=== PATIENT | female | born 2000 | race American Indian/Alaskan Native ===

== ENCOUNTER 2024-04-10 08:04 | Day surgery (SDC) | payer OTHER, BC ==
[~2024-04-10] VITALS: Ht 160 cm; Wt 98.0 kg
[~2024-04-10 08:04] MED LIST: AMOXICILLIN500 MG PO; AYGESTIN5 MG PO; CRUTCH1 EACH; FERROUS SULFAT325 MG PO; FERROUS SULFATE; IBLOOD GLUCOSE TEST STRIP 1 EA TEST VI PRN; IBUPROFEN200 MG PO; IRON325 M1 PO; LACTATED RINGER'S 1,000 ML IV SCH; LIDOCAINE HCL 1% 5 ML SDV INJ ONE; MIDAZOLAM HCL 5 MG/5 ML VIAL IV PRN; NORCO 5-325 TA1 EACH PO; PROBIOTIC1 EAC1 PO; VITAMIN D400 UNIT PO; fentaNYL citrate 100 MCG/2 ML VIAL IV PRN
[2024-04-10 08:36] VITALS: BP 144/71
[2024-04-10] MEDS ORDERED: MIDAZOLAM HCL 5 MG/5 ML VIAL ONE (08:58)
[2024-04-10] MEDS ORDERED: fentaNYL citrate 100 MCG/2 ML VIAL ONE (08:59)
--- NOTE | 2024-04-10 10:19 | NUR ---
04/10/24 1019 Lucero Jansen 1011 PT ARRIVES TO THE PACU WITH EYES OPEN. PT ABLE TO LIFT HEAD FROM PILLOW. RESPIRATIONS EVEN AND UNLABORED. PT ABLE TO TALK WITH RN. PT EASILY FALLS BACK TO SLEEP WITH SNORING NOTED. PT REORIENTED TO PACU AND NO COMPLAINTS OF PAIN OR NAUSEA.
[2024-04-10 10:54] VITALS: BP 141/73
--- NOTE | 2024-04-10 12:39 | OR ---
[facility] [address], [place] [address] Signed DATE OF OPERATION: 04/10/2024 SURGEON: Дмитрий Roberson MD PREOPERATIVE DIAGNOSES: 1. Familial polyposis. 2. History of total proctocolectomy with ileoanal pull-through (J-pouch). POSTOPERATIVE DIAGNOSES: 1. No evidence of pouchitis, questionable small adenomatous polyp at junction of pouch and anal anastomosis. 2. Questionable small duodenal polyps x2; multiple gastric polyps (benign). PROCEDURES: 1. Esophagogastroduodenoscopy with biopsies. 2. Flexible sigmoidoscopy with biopsy of pouch and territory service representative biopsy of possible polyp at the J-pouch junction. ANESTHESIA: Intravenous sedation; fentanyl 150 mcg and Versed 7 mg total. INDICATIONS: This 24-year-old [place]ian [place] girl underwent total proctocolectomy with ileoanal pull-through at age 11 for a familial polyposis. Her mother has had the same operation. She is highly functional. 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 She has no symptoms of pouchitis currently. She is admitted at this time to undergo surveillance upper endoscopy to assess for duodenal polyps given her underlying diagnosis of familial polyposis as well as evaluation of the pouch to assess the junction between pouch and anal canal to assure no retained colonic mucosa has developed polyps and to assess for pouchitis. The patient understands the risk of bleeding, infection, and perforation and wished to proceed. FINDINGS: Upper endoscopy showed multiple gastric polyps, all of which were benign based on known natural history of multiple polyps and familial polyposis. A territory service representative polyp was excised, however. In the duodenum, the ampulla was identified and appeared to be normal. There were two questionable small polyps of the duodenum, both excised with cold morcellation technique. CLOtest was obtained, which was negative. On flexible sigmoidoscopy (J-pouchoscopy), the pouch was free of any inflammation, Electronically Signed By: ДМИТРИЙ ROBERSON MD 04/10/24 1239 PATIENT NAME: KERRI SWAN OPERATIVE REPORT DATE OF : 01 REPORT #: [id number] PHYSICIAN: ДМИТРИЙ ROBERSON MD PCP: ANA CRISTINA STARK MD REPORT IS CONFIDENTIAL AND NOT TO BE RELEASED WITHOUT AUTHORIZATION [facility] [address], [place] [address] Signed though at the junction between the pouch and what would be the anal mucosa there did appear on retroflexed view to be adenomatous appearing polypoid tissue, thus this cannot be certain. It was difficult to even provide biopsy of this, but it was accomplished. If adenoma is identified, immediately we need to resect this. DESCRIPTION OF PROCEDURE: The patient was brought to the endoscopy suite and given topical lidocaine hypopharyngeal anesthesia and placed in lateral decubitus position with left side down. She was given intravenous sedation to the point of slurred speech and nystagmus with full cardiopulmonary monitoring. A bite block was placed. An Olympus video upper endoscope was passed by hypopharynx. Vocal cords were normal. Scope was advanced to the esophagus, which was entirely normal. The scope was passed to the stomach, which was insufflated with air. There were countless gastric polyps as is typical of familial polyposis, none of which would be considered hazardous for malignancy. There were few polyps in the antrum. The pylorus was normal. Scope was passed into the duodenum. The duodenum overall looked to be normal. The ampulla was identified as normal. No sign of adenomatous change there. There appeared to be two small areas that may have represented early duodenal polyps, both were excised. The scope was withdrawn and biopsies then taken of the antrum for both RICHARD and pathologic testing. Additionally, a biopsy was taken of a gastric polyp, though almost certainly the polyps of the stomach would be considered benign with essentially no malignant potential. Retroflexed view was undertaken showing a reasonable flap valve. The scope was withdrawn to the esophagus and throughout its length it was normal and it was not biopsied. Plans were then made for J pouchoscopy. A flexible colonoscope was passed in the rectum after digital examination. The pouch showed no evidence of inflammation, whatsoever and territory service representative biopsy was obtained nevertheless. Retroflexed view was undertaken showing what appeared to be a polypoid lesion at the junction of the pouch and the anal anastomosis. It could not be ascertained whether this represented an adenoma or simply redundant small bowel mucosa. Narrow-band imaging did not further elucidate this. It was somewhat awkward to provide for biopsy, though it was accomplished in the retroflexed view and the territory service representative biopsy was taken. The scope was removed, and the patient taken to the recovery room in good condition. CONCLUDING DIAGNOSES: 1. Possible duodenal polyps x2, uncertain, awaiting pathology. 2. Questionable polyp of the pouch anal junction. If this proves to be adenomatous, additional intervention will have to be undertaken, perhaps with a transanal approach or if necessary a flexible upper endoscope to allow for complete resection. 3. We would otherwise recommend repeat evaluation in three years if the upper endoscopy shows no evidence of adenomatous polyps and perhaps even longer or never if the junctional findings are not adenomatous. Electronically Signed By: ДМИТРИЙ ROBERSON MD 04/10/24 1239 PATIENT NAME: MYNOR SWANBRIA Howard OPERATIVE REPORT DATE OF : 01 REPORT #: [id number] PHYSICIAN: ДМИТРИЙ ROBERSON MD PCP: ANA CRISTINA STARK MD REPORT IS CONFIDENTIAL AND NOT TO BE RELEASED WITHOUT AUTHORIZATION [address] [place] [address] Signed MD WILL Etienne/ADAMS /[id number] cc: Ana Cristina Stark M.D. Copies: ~ Electronically Signed By: ДМИТРИЙ ROBERSON MD 04/10/24 1239 PATIENT NAME: KERRI SWAN OPERATIVE REPORT DATE OF : 01 REPORT #: [id number] PHYSICIAN: ДМИТРИЙ ROBERSON MD PCP: ANA CRISTINA STARK MD REPORT IS CONFIDENTIAL AND NOT TO BE RELEASED WITHOUT AUTHORIZATION
--- NOTE | 2024-04-12 17:27 | PATH ---
[facility] [address] [place], [place] [address] Signed SPECIMEN(S): A DUODENUM POLYP SPECIMEN(S): B STOMACH POLYP SPECIMEN(S): C ILEUM BIOPSY SPECIMEN(S): D JUNCTION ANAL CANAL POUCH SPECIMEN SOURCE: A. DUODENUM POLYP B. STOMACH POLYP C. ILEUM BIOPSY D. JUNCTION ANAL CANAL POUCH CLINICAL HISTORY: Familial polyposis with total proctocolectomy with ileoanal pull-through, #1) possible duodenal polyps, #3) ileal pouch, #4) junction anal canal and pouch? Possible polyp FINAL PATHOLOGIC DIAGNOSIS: A. Duodenum polyp: - Duodenal mucosa with tubular adenoma (one fragment). B. Stomach polyp: - Benign fundic gland polyp (one fragment). C. Ileum biopsy: - Benign small bowel type mucosa, negative for specific diagnostic abnormality. D. Junction anal canal pouch: - Colonic mucosa with tubular adenoma (three fragments). COMMENT: As part of [facility]' Quality Improvement Program, this case was reviewed by another member of our pathology staff. JVR:SHAKIRA:sukh MICROSCOPIC EXAMINATION: Histologic sections of all submitted blocks are examined by light microscopy. These findings, together with the gross examination, support the pathologic diagnosis. GROSS DESCRIPTION: A. The specimen, labeled and designated "David Rios, 1" and designated on the requisition "duodenum polypectomy," is received in formalin and consists of two lewis soft tissue fragments, ranging from PATIENT NAME: KAMILLE SWANTON Howard PATHOLOGY DATE OF : 01 REPORT #: [id number] PHYSICIAN: HARRIS ASCENCIO PCP: SHARYN STARK MD REPORT IS CONFIDENTIAL AND NOT TO BE RELEASED WITHOUT AUTHORIZATION [facility] [address], [place] [address] Signed 0.2-0.3 cm. Entirely submitted in (A1). B. The specimen, labeled and designated "David , 2" and designated on the requisition "stomach polypectomy," is received in formalin and consists of two lewis soft tissue fragments, ranging from 0.1-0.2 cm. Entirely submitted in (B1). C. The specimen, labeled and designated "David , 3" and designated on the requisition "ileum biopsy, ileal pouch biopsy," is received in formalin and consists of three lewis soft tissue fragments, ranging from 0.2-0.3 cm. Entirely submitted in (C1). D. The specimen, labeled and designated "David , 4" and designated on the requisition "junction anal canal pouch," is received in formalin and consists of three lewis soft tissue fragments, ranging from 0.2-0.4 cm. Entirely submitted in (D1). AC (under the direct supervision of a pathologist) The Gross Description was prepared using a voice recognition system. The report was reviewed for accuracy; however, sound-alike word errors, addition and/or deletions may occur. If there is any question about this report, please contact Client Services. PERFORMING LABORATORY: Technical component was performed by [facility], [address] [place] [id number] (CLIA# [id number]). Professional interpretation was performed by [facility], [address] [place] [id number] (CLIA#: [id number]). Diagnostician: Morales Mancia MD Pathologist Electronically Signed 04/12/2024 Copies: ~ PATIENT NAME: KERRI SWAN PATHOLOGY DATE OF : 01 REPORT #: [id number] PHYSICIAN: HARRIS PATHOLOGY PCP: SHARYN STARK MD REPORT IS CONFIDENTIAL AND NOT TO BE RELEASED WITHOUT AUTHORIZATION
== END 2024-04-10 12:04 | disposition home or self-care (01) ==
LOC: DS 08:04 → OPS 08:04
PROVIDERS: ATTEND Surgery
PROC: 0DD68ZX Extraction of Stomach, Via Natural or Artificial Opening Endoscopic, Diagnostic (ICD-10-PCS; 2024-04-10)
PROC: 0DBQ7ZX Excision of Anus, Via Natural or Artificial Opening, Diagnostic (ICD-10-PCS; 2024-04-10)
PROC: 0DD98ZX Extraction of Duodenum, Via Natural or Artificial Opening Endoscopic, Diagnostic (ICD-10-PCS; principal; 2024-04-10 09:30)
PROC: 0DD88ZX Extraction of Small Intestine, Via Natural or Artificial Opening Endoscopic, Diagnostic (ICD-10-PCS; 2024-04-10 09:30)
DX: D12.9 Benign neoplasm of anus and anal canal (principal); D13.2 Benign neoplasm of duodenum; K31.7 Polyp of stomach and duodenum; Z98.0 Intestinal bypass and anastomosis status
CPT/HCPCS: 84703; 99153; G0500; J2250; J3010

== ENCOUNTER 2024-07-17 06:09 | Day surgery (SDC) | payer OTHER, BC ==
[2024-07-12 16:15] VITALS: BP 127/71
[~2024-07-17] VITALS: Ht 160 cm; Wt 103.6 kg
[~2024-07-17 06:09] MED LIST changes: -IBLOOD GLUCOSE TEST STRIP 1 EA TEST VI PRN; -LIDOCAINE HCL 1% 5 ML SDV INJ ONE; -MIDAZOLAM HCL 5 MG/5 ML VIAL IV PRN; -fentaNYL citrate 100 MCG/2 ML VIAL IV PRN
[2024-07-17 06:25] VITALS: BP 136/67
[2024-07-17] MEDS ORDERED: LIDOCAINE HCL 1% 5 ML SDV INJ ONE (07:00)
[2024-07-17] MEDS ORDERED: IBLOOD GLUCOSE TEST STRIP 1 EA TEST VI PRN (07:00)
[2024-07-17] MEDS ORDERED: MIDAZOLAM HCL 2 MG/2 ML VIAL ONE (07:10)
[2024-07-17] MEDS ORDERED: DEXAMETHASONE SOD PHOS 4 MG/ML VIAL ONE (07:10)
[2024-07-17] MEDS ORDERED: ROCURONIUM BROMIDE 50 MG/5 ML SYR ONE (07:10)
[2024-07-17] MEDS ORDERED: ondansetron HCL 4 MG/2 ML VIAL ONE (07:10)
[2024-07-17] MEDS ORDERED: LIDOCAINE HCL 2% 5 ML SDV ONE (07:10)
[2024-07-17] MEDS ORDERED: fentaNYL citrate 100 MCG/2 ML VIAL ONE (07:10)
[2024-07-17] MEDS ORDERED: propofoL 200 MG/20 ML VIAL ONE ×2 (07:10→08:00)
--- NOTE | 2024-07-17 07:24 | NUR ---
PT NOT AVAIALBLE FOR VISIT. PROVIDED PRAYER.
[2024-07-17] MEDS ORDERED: CEFAZOLIN SODIUM 2 GM/20 ML SYR IV SCH (07:31)
[2024-07-17] MEDS ORDERED: CEFAZOLIN SODIUM 2 GM/20 ML SYR ONE (07:33)
--- NOTE | 2024-07-17 07:33 | NUR ---
VISITED DURING SPIRITUAL CARE ROUNDS. PT SUPPORTED BY FAMILY MEMBER ROOM. BOTH APPEAR CALM AND CONFIDENT. TEA BLENDER PROVIDED SUPPORTIVE PRESENCE, HOSPITALITY, PRAYER. PT AND NEWSPAPER PUBLISHER EXPRESSED GRATITUDE.
[2024-07-17] MEDS ORDERED: KETAMINE in NS 50 MG/5 ML SYR ONE (07:41)
--- NOTE | 2024-07-17 08:26 | NUR ---
07/17/24 0826 Jeny Tamayo 0817- PT ARRIVES TO PACU NONAROUSABLE TO STIMULI. RESP EVEN AND UNLABORED. OXYGEN SAT HIGH 90'S TO 100% ON RA. 0818- PT SNORING. SNORING CLEARS WITH CHIN LIFT. 0820- ABLE TO REPOSITION THE PT'S HEAD TO MAINTAIN PATENT AIRWAY WITHOUT A CHIN LIFT. 0822- PT AROUSING TO VERBAL STIMULI. PT UPDATED THAT HER SURGERY IS OVER. PT FALLS INSTANTLY BACK TO SLEEP. RESP EVEN AND UNLABORED. OXYGEN SAT HIGH 90'S ON RA.
[2024-07-17] MEDS ORDERED: OXYCODON-ACETA1 EAC2 PO (08:39)
[2024-07-17] MEDS ORDERED: ACETAMINOPHEN500 MG PO (08:39)
[2024-07-17] MEDS ORDERED: IBUPROFEN600 MG PO (08:39)
[2024-07-17] MEDS ORDERED: OXYCODONE/APAP 7.5/325 TAB PO PRN (08:45)
[2024-07-17] MEDS ORDERED: NALOXONE HCL 0.4 MG SYR IV PRN (08:45)
[2024-07-17] MEDS ORDERED: LACTATED RINGER'S 1,000 ML IV SCH (08:45)
[2024-07-17] MEDS ORDERED: IBUPROFEN 600 MG TAB PO PRN (08:45)
[2024-07-17] MEDS ORDERED: ACETAMINOPHEN 500 MG TAB PO PRN (08:45)
[2024-07-17 08:57] VITALS: BP 140/90
--- NOTE | 2024-07-17 10:29 | OR ---
[facility] [address] [place], [place] [address] Signed DATE OF OPERATION: 07/17/2024 SURGEON: Дмитрий Roberson MD PREOPERATIVE DIAGNOSES: 1. Adenomatous polyp of probable retained rectal mucosa. 2. History of familial polyposis, status post total procto-colectomy with ileoanal pull-through (J-pouch). POSTOPERATIVE DIAGNOSES: 1. Adenomatous polyp of probable retained rectal mucosa. 2. History of familial polyposis, status post total procto-colectomy with ileoanal pull-through (J-pouch). PROCEDURES: 1. Exam under anesthesia. 2. Excision of possible retained rectal mucosa with adenomatous polyps, transanal approach. ANESTHESIA: Intravenous sedation; Lucius Siemens, FUND DEVELOPMENT MANAGER. INDICATION: This 24-year-old woman underwent flexible sigmoidoscopy (pouchoscopy) and upper endoscopy on April 10, 2024. On upper endoscopy, she was found to have some duodenal polyps, at least one of the polyps was confirmed as a tubular adenoma. There were benign fundic gland polyps of the stomach. Limited pouch endoscopic examination showed small bowel type mucosa as would be expected but at the junction of the anal canal pouch anastomosis with colonic mucosa with tubular adenoma without evidence of dysplasia. Likely incomplete extirpation of the rectal mucosa was undertaken at original operation of rectal mucosectomy. Complete extirpation endoscopically was not possible given the tight space and orientation of the scope and on that basis, I have recommended transanal excision of retained colonic mucosa with adenomatous polyps. The risk of bleeding, infection, and other unforeseen complications were reviewed with her, she understands and wished to proceed. FINDINGS: The anal canal was normal. The sphincter tone was good overall. The ileoanal anastomotic mucosal margin appeared to be intact except in the lateral anterior aspect where there appeared to be redundant mucosa, possibly artist's representative of retained rectal Electronically Signed By: ДМИТРИЙ ROBERSON MD 07/17/24 1029 PATIENT NAME: KERRI SWAN OPERATIVE REPORT DATE OF : 01 REPORT #: [id number] PHYSICIAN: ДМИТРИЙ ROBERSON MD PCP: ANA CRISTINA STARK MD REPORT IS CONFIDENTIAL AND NOT TO BE RELEASED WITHOUT AUTHORIZATION [facility] [address] [place], [place] [address] Signed mucosa. This area was excised and closed. PROCEDURE IN DETAIL: The patient was brought to the operating room, placed in prone chandler-knife position. Preoperative antibiotic Ancef was given. Sequential compression device stockings were used. She was given intravenous sedation as the dominant anesthesia form. Table was placed in a prone chandler-knife position. Buttocks taped apart. Digital examination with lubricated finger showed good sphincter tone. An anal retractor was placed which did cause some mild anoderm excoriation. Examination of the ileoanal anastomotic margin was undertaken showing it to be intact posteriorly and laterally on the right and largely anterior and lateral on the left, but an area in the left anterolateral area had redundant mucosa suggestive though not diagnostic of retained rectal mucosa where previous adenomatous polyps were noted. A White clamp was applied to this area, was elevated and the corner secured with a 2-0 chromic suture. Excision of the mucosa was undertaken and the defect closed with running 2-0 chromic suture. 3 mL of 0.25% Marcaine with epinephrine injected locally. Additional hemostasis was assured in areas appropriate with electrocautery. A peripad was placed. She was returned to the supine position and taken to the recovery room in good condition. MD WILL Etienne/CHRISL /[id number] cc: Ana Cristina Stark MD Copies: ~ Electronically Signed By: ДМИТРИЙ ROBERSON MD 07/17/24 1029 PATIENT NAME: KERRI SWAN OPERATIVE REPORT DATE OF : 01 REPORT #: [id number] PHYSICIAN: ДМИТРИЙ ROBERSON MD PCP: ANA CRISTINA STARK MD REPORT IS CONFIDENTIAL AND NOT TO BE RELEASED WITHOUT AUTHORIZATION
--- NOTE | 2024-07-20 12:22 | PATH ---
[facility] [address] [facility] [place], [place] [address] Signed SPECIMEN(S): A LOW RECTAL POLYP SPECIMEN SOURCE: A. LOW RECTAL POLYP CLINICAL HISTORY: Familial multiple polyposis syndrome; rectal polyp FINAL PATHOLOGIC DIAGNOSIS: Rectum, "low", polypectomy: - Tubular adenoma BRP MICROSCOPIC EXAMINATION: Histologic sections of all submitted blocks are examined by light microscopy. These findings, together with the gross examination, support the pathologic diagnosis. GROSS DESCRIPTION: The specimen, labeled and designated "Ulises Swan, low rectal polyp," is received in formalin and consists of one lewis soft tissue fragment, 1.2 cm. Entirely submitted in (A1). HS (under the direct supervision of a pathologist) The Gross Description was prepared using a voice recognition system. The report was reviewed for accuracy; however, sound-alike word errors, addition and/or deletions may occur. If there is any question about this report, please contact Client Services. ADDITIONAL NOTES: Immunohistochemical and/or in situ hybridization studies if performed in this case included appropriate positive controls that reacted as expected. This test was developed and its performance characteristics determined by [employer]. It has not been cleared or approved by the U.S. Food and Drug Administration. The FDA has determined that such clearance or approval is not necessary. This test is used for clinical purposes. It should not be regarded as investigational or for research. [employer] is certified under the Clinical Laboratory Improvement Amendments of 1988 (CLIA) as qualified to perform high complexity clinical laboratory testing. PATIENT NAME: KERRI SWAN PATHOLOGY DATE OF : 01 REPORT #: [id number] PHYSICIAN: HARRIS ASCENCIO PCP: SHARYN STARK MD REPORT IS CONFIDENTIAL AND NOT TO BE RELEASED WITHOUT AUTHORIZATION [facility] [address] [place] [address] Signed PERFORMING LABORATORY: Technical component was performed by [facility], [address] [place] [address] (CLIA# [id number]). [facility] [address] [address] (CLIA# [id number]). Diagnostician: Quintin Jansen MD Pathologist Electronically Signed 07/20/2024 Copies: ~ PATIENT NAME: KERRI SWAN PATHOLOGY DATE OF : 01 REPORT #: [id number] PHYSICIAN: HARRIS ASCENCIO PCP: SHARYN STARK MD REPORT IS CONFIDENTIAL AND NOT TO BE RELEASED WITHOUT AUTHORIZATION
== END 2024-07-17 09:14 | disposition home or self-care (01) ==
LOC: DS 06:09
PROVIDERS: ATTEND Surgery
PROC: 0DBP0ZZ Excision of Rectum, Open Approach (ICD-10-PCS; 2024-07-17)
PROC: 0DBP0ZZ Excision of Rectum, Open Approach (ICD-10-PCS; principal; 2024-07-17 07:30)
DX: K62.89 Other specified diseases of anus and rectum (principal); D12.8 Benign neoplasm of rectum; Z86.010 Personal history of colon polyps
CPT/HCPCS: 00904; J0690; J1100; J2001; J2250; J2405; J2704; J3010; J3490; J7121

== ENCOUNTER 2025-11-24 02:37 | Observation (INO) | payer OTHER ==
[~2025-11-24] VITALS: Ht 157.5 cm; Wt 110.8 kg
[2025-11-24] VITALS (14 sets, daily range): BP systolic 113–143; BP diastolic 51–64
--- OUTSIDE RECORDS SUMMARY | ~2025-11-24 | XMS | Continuity of Care Document ---
Demographics + + + | Address | [address] | | | [place] [address] | + + + | Preferred Language | Unknown | + + + | Marital Status | Never | + + + | Adventist Affiliation | Unknown | + + + | Race | or | + + + | Ethnic Group | or | + + + Author + + + | Author | [place] | + + + | Organization | [place] | + + + | Address | [address] | | | [place] [address] | + + + | Phone | | + + + Care Team Providers + + + + | Care Sat Act Instructor Name | Role | Phone | + + + + Unavailable | Unavailable | + + + + Unavailable | Unavailable | + + + + Unavailable | Unavailable | + + + + Allergies and Intolerances + + + + + + | date | description | facility | reaction | severity | + + + + + + | 2025-11-15 | UNK | [facility] - | (no reaction) | (no severity) | | 00:00 | [facility] | | | + + + + + + Encounters No information. Functional Status No information. Immunizations No information. Medications + + + + | date | description | facility | + + + + | (no date) | LACTOBACILLUS ACIDOPHILUS | [facility] | | | | [facility] | + + + + | (no date) | LACTOBACILLUS ACIDOPHILUS | [facility] | | | | [facility] | + + + + | (no date) | FERROUS SULFATE | [facility] | | | | [facility] | + + + + | (no date) | FERROUS SULFATE | [facility] | | | | [facility] | + + + + | (no date) | IBUPROFEN | [facility] | | | | [facility] | + + + + | (no date) | IBUPROFEN | [facility] | | | | [facility] | + + + + | (no date) | Cyanocobalamin (Vitamin | [facility] | | | B-12) | [facility] | + + + + | (no date) | Cyanocobalamin (Vitamin | [facility] | | | B-12) | [facility] | + + + + | (no date) | CHOLECALCIFEROL (VITAMIN | [facility] | | | D3) | [facility] | + + + + | (no date) | CHOLECALCIFEROL (VITAMIN | [facility] | | | D3) | [facility] | + + + + | (no date) | MAGNESIUM AMINO ACID | [facility] | | | CHELATE | [facility] | + + + + | (no date) | MAGNESIUM AMINO ACID | [facility] | | | CHELATE | [facility] | + + + + Problems + + + + | | description | facility | + + + + | 2025-11-16 00:00 | Hematochezia | [facility] | | | | [facility] | + + + + | 2025-11-16 00:00 | Syncope | [facility] | | | | [facility] | + + + + Procedures No information. Results/Labs +--------+--------+ +---------+--------+---------+ | test | date | facility | value | unit | notes | +--------+--------+ +---------+--------+---------+ + + | Result panel 1 | + + + + + + + + + | HCG Ur Ql | 2025-11-15 | | NEGATIVE | (missing) | (missing) | | | 07:00:08 | [facility] | [facility] | | | | | | [facility] | | | | + + + + + + + + + | Result panel 2 | + + + + + + + + + | HCG Ur Ql | 2025-11-15 | | NEGATIVE | (missing) | (missing) | | | 07:00:08 | [facility] | | | | + + + + + + + + + | Result panel 3 | + + + + + +-------+ + + | Platelet # | 2025-11-16 | | 299 | (missing) | (missing) | | Bld Auto | 08:45:08 | [facility] | [facility] | | | | + + + +-------+ + + + + | Result panel 4 | + + + + + +--------+ + + | Neutrophils | 2025-11-16 | | 54.2 | (missing) | (missing) | | NFr Bld | 08:45:08 | [facility] | | | | | Auto | [facility] | | | | + + + +--------+ + + + + | Result panel 5 | + + + + + +--------+ + + | Lymphocytes | 2025-11-16 | | 39.1 | (missing) | (missing) | | NFr Bld | 08:45:08 | [facility] | | | | | Auto | [facility] | | | | + + + +--------+ + + + + | Result panel 6 | + + + + + +-------+ + + | Monocytes | 2025-11-16 | | 5.0 | (missing) | (missing) | | NFr Bld Auto | 08:45:08 | [facility] | | [facility] | | | | + + + +-------+ + + + + | Result panel 7 | + + + + + +-------+ + + | Eosinophil | 2025-11-16 | | 0.8 | (missing) | (missing) | | NFr Bld Auto | 08:45:08 | [facility] | [facility] | | | | + + + +-------+ + + + + | Result panel 8 | + + + + + +-------+ + + | Basophils | 2025-11-16 | | 0.5 | (missing) | (missing) | | NFr Bld Auto | 08:45:08 | [facility] | | | [facility] | | | | + + + +-------+ + + + + | Result panel 9 | + + + + + +--------+ + + | Prothrombin | 2025-11-16 | | 12.8 | (missing) | (missing) | | time | 08:45:08 | [facility] | | | | + + + +--------+ + + + + | Result panel 10 | + + + + + +--------+ + + | INR PPP | 2025-11-16 | | 1.03 | (missing) | (missing) | | | 08:45:08 | [facility] | | | | + + + +--------+ + + + + | Result panel 11 | + + + + + +-------+---------+ + | Glucose | 2025-11-16 | | 177 | mg/dL | (missing) | | SerPl-mCnc | 08:45:08 | [facility] | | | [facility] | | | | + + + +-------+---------+ + + + | Result panel 12 | + + + + + +------+---------+ + | BUN | 2025-11-16 | | 15 | mg/dL | (missing) | | SerPl-mCnc | 08:45:08 | [facility] | | | | | [facility] | | | | + + + +------+---------+ + + + | Result panel 13 | + + + + + +--------+---------+ + | Creat | 2025-11-16 | | 0.87 | mg/dL | (missing) | | SerPl-mCnc | 08:45:08 | [facility] | | [facility] | | | | + + + +--------+---------+ + + + | Result panel 14 | + + + + + +------+ + + | eGFRcr | 2025-11-16 | | 95 | (missing) | (missing) | | SerPlBld | 08:45:08 | [facility] | | | | | CKD-EPI 2020 | [facility] | | | | + + + +------+ + + + + | Result panel 15 | + + + + + +---------+ + + | BUN/Creat | 2025-11-16 | | 17.24 | (missing) | (missing) | | SerPl | 08:45:08 | [facility] | | | | | | [facility] | | | | + + + +---------+ + + + + | Result panel 16 | + + + + + +-------+ + + | Sodium | 2025-11-16 | | 139 | (missing) | (missing) | | SerPl-sCnc | 08:45:08 | [facility] | | | | | | [facility] | | | | + + + +-------+ + + + + | Result panel 17 | + + + + + +-------+ + + | Potassium | 2025-11-16 | | 4.0 | (missing) | (missing) | | [facility] | 08:45:08 | [facility] | | | | [facility] | | | | + + + +-------+ + + + + | Result panel 18 | + + + + + +-------+ + + | Chloride | 2025-11-16 | | 106 | (missing) | (missing) | | SerPl-sCnc | 08:45:08 | [facility] | | | | | | [facility] | | | | + + + +-------+ + + + + | Result panel 19 | + + + + + +------+ + + | CO2 | 2025-11-16 | | 26 | (missing) | (missing) | | SerPl-sCnc | 08:45:08 | [facility] | | | | | | [facility] | | | | + + + +------+ + + + + | Result panel 20 | + + + + + +--------+ + + | Anion Gap | 2025-11-16 | | 11.0 | (missing) | (missing) | | SerPl | 08:45:08 | [facility] | | | | | Calculated.4 | [facility] | [facility] | | | | + + + +--------+ + + + + | Result panel 21 | + + + + + +-------+---------+ + | Calcium | 2025-11-16 | | 7.9 | mg/dL | (missing) | | SerPl-mCnc | 08:45:08 | [facility] | | | | | | [facility] | | | | + + + +-------+---------+ + + + | Result panel 22 | + + + + + +-------+ + + | Prot | 2025-11-16 | | 6.0 | (missing) | (missing) | | Laquita-Basilio | 08:45:08 | [facility] | | | [facility] | | | | + + + +-------+ + + + + | Result panel 23 | + + + + + +--------+ + + | WBC # Bld | 2025-11-16 | | 9.52 | (missing) | (missing) | | Auto | 08:45:08 | [facility] | | | | | [facility] | | | | + + + +--------+ + + + + | Result panel 24 | + + + + + +-------+ + + | Albumin | 2025-11-16 | | 2.9 | (missing) | (missing) | | [facility] | 08:45:08 | [facility] | | | | | | [facility] | | | | + + + +-------+ + + + + | Result panel 25 | + + + + + +-------+ + + | Globulin | 2025-11-16 | | 3.1 | (missing) | (missing) | | Ser-mCnc | 08:45:08 | [facility] | | | | | | [facility] | | | | + + + +-------+ + + + + | Result panel 26 | + + + + + +--------+ + + | | 2025-11-16 | | 0.94 | (missing) | (missing) | | Albumin/Glob | 08:45:08 | [facility] | | | | | SerPl | [facility] | | | | + + + +--------+ + + + + | Result panel 27 | + + + + + +-------+---------+ + | Bilirub | 2025-11-16 | | 0.3 | mg/dL | (missing) | | SerPl-mCnc | 08:45:08 | [facility] | | | | | | [facility] | | | | + + + +-------+---------+ + + + | Result panel 28 | + + + + + +------+ + + | AST | 2025-11-16 | | 17 | (missing) | (missing) | | SerPl-cCnc | 08:45:08 | [facility] | | | | | | [facility] | | | | + + + +------+ + + + + | Result panel 29 | + + + + + +------+ + + | ALT | 2025-11-16 | | 36 | (missing) | (missing) | | SerPl-cCnc | 08:45:08 | [facility] | | | | | | [facility] | | | | + + + +------+ + + + + | Result panel 30 | + + + + + +------+ + + | ALP | 2025-11-16 | | 78 | (missing) | (missing) | | SerPl-cCnc | 08:45:08 | [facility] | | | | | | [facility] | | | | + + + +------+ + + + + | Result panel 31 | + + + + + + + + + | IAT Poly-Sp | 2025-11-16 | | NEGATIVE | (missing) | (missing) | | Reag SerPl | 08:45:08 | [facility] | | | | | Ql | [facility] | | | | + + + + + + + + + | Result panel 32 | + + + + + +--------+ + + | RBC # Bld | 2025-11-16 | | 3.94 | (missing) | (missing) | | Auto | 08:45:08 | [facility] | | | | | | [facility] | | | | + + + +--------+ + + + + | Result panel 33 | + + + + + + + + + | Lupillo XM | 2025-11-16 | | COMPATIBLE | (missing) | (missing) | | SerPl Imm | 08:45:08 | [facility] | | | | | Spin-Imp | [facility] | | | | + + + + + + + + + | Result panel 34 | + + + + + + + + + | Lupillo XM | 2025-11-16 | | COMPATIBLE | (missing) | (missing) | | SerPl Imm | 08:45:08 | [facility] | | | | | Spin-Imp | [facility] | | | | + + + + + + + + + | Result panel 35 | + + + + + + + + + | FFP Gvn BPU | 2025-11-16 | | | (missing) | (missing) | | | 08:45:08 | [facility] | [id number] | | | | | | - | 700I | | | | | | [facility] | | | | + + + + + + + + + | Result panel 36 | + + + + + + + + + | FFP Gvn BPU | 2025-11-16 | | | (missing) | (missing) | | | 08:45:08 | [facility] | [id number] | | | | | [facility] 100M | | | [facility] | | | | + + + + + + + + + | Result panel 37 | + + + + + + + + + | Transf Band | 2025-11-16 | | BLOOD IN | (missing) | (missing) | | Num Patient | 08:45:08 | [facility] | LAB | | | | | [facility] | | | | + + + + + + + + + | Result panel 38 | + + + + + +--------+ + + | Hct VFr.DF | 2025-11-16 | | 32.5 | (missing) | (missing) | | Bld Auto | 08:45:08 | [facility] | | | | | | [facility] | | | | + + + +--------+ + + + + | Result panel 39 | + + + + + +--------+ + + | RBC Auto | 2025-11-16 | | 82.5 | (missing) | (missing) | | | 08:45:08 | [facility] | | | | | [facility] | | | | + + + +--------+ + + + + | Result panel 40 | + + + + + +--------+ + + | MCH RBC Qn | 2025-11-16 | | 26.9 | (missing) | (missing) | | Auto | 08:45:08 | [facility] | | | | | | [facility] | | | | + + + +--------+ + + + + | Result panel 41 | + + + + + +--------+ + + | MCHC RBC | 2025-11-16 | | 32.6 | (missing) | (missing) | | Auto-EntMCnc | 08:45:08 | [facility] | | | | | | [facility] | | | | + + + +--------+ + + + + | Result panel 42 | + + + + + +-----+ + + | ABO Group | 2025-11-16 | | O | (missing) | (missing) | | Bld | 09:05:08 | [facility] | | | | | [facility] | | | | + + + +-----+ + + + + | Result panel 43 | + + + + + + + + + | Rh Bld | 2025-11-16 | | POSITIVE | (missing) | (missing) | | | 09:05:08 | [facility] | | | | | [facility] | | | | + + + + + + + + + | Result panel 44 | + + + + + +--------+ + + | Hgb | 2025-11-16 | | 10.9 | (missing) | (missing) | | Bld-mCnc | 17:08:08 | [facility] | | | | | | [facility] | | | | + + + +--------+ + + Social History +--------+ + + | date | description | facility | +--------+ + + Vital Signs + + + +---------+ | date | measurement | value | units | + + + +---------+ | 2025-11-14 00:00 | BMI | 39.1 | kg/m2 | + + + +---------+ | 2025-11-14 00:00 | height_metric | 160.02 | cm | + + + +---------+ | 2025-11-14 00:00 | height_standard | 63 | in | + + + +---------+ | 2025-11-14 00:00 | weight_metric | 100 | kg | + + + +---------+ | 2025-11-14 00:00 | weight_standard | 220.462 | lb | + + + +---------+ | 2025-11-15 00:00 | BP_diastolic | 69 | mmHg | + + + +---------+ | 2025-11-15 00:00 | BP_systolic | 135 | mmHg | + + + +---------+ | 2025-11-15 00:00 | heart_rate | 60 | /min | + + + +---------+ | 2025-11-15 00:00 | o2_saturation | 96 | % | + + + +---------+ | 2025-11-15 00:00 | respiration_rate | 16 | /min | + + + +---------+ | 2025-11-15 00:00 | | 97.2 | F | | | temperature_standar | | | | | d | | | + + + +---------+ | 2025-11-16 00:00 | BMI | 42.2 | kg/m2 | + + + +---------+ | 2025-11-16 00:00 | height_metric | 157.48 | cm | + + + +---------+ | 2025-11-16 00:00 | height_standard | 62 | in | + + + +---------+ | 2025-11-16 00:00 | weight_metric | 104.601 | kg | + + + +---------+ | 2025-11-16 00:00 | weight_standard | 230.606 | lb | + + + +---------+ | 2025-11-17 00:00 | BP_diastolic | 61 | mmHg | + + + +---------+ | 2025-11-17 00:00 | BP_systolic | 124 | mmHg | + + + +---------+ | 2025-11-17 00:00 | heart_rate | 83 | /min | + + + +---------+ | 2025-11-17 00:00 | o2_saturation | 100 | % | + + + +---------+ | 2025-11-17 00:00 | respiration_rate | 20 | /min | + + + +---------+ | 2025-11-17 00:00 | | 98.2 | F | | | temperature_standar | | | | | d | | | + + + +---------+"
--- OUTSIDE RECORDS SUMMARY | ~2025-11-24 | XMS | Continuity of Care Document ---
Demographics + + + | Address | [address] | | | [place] [address] | + + + | Preferred Language | Unknown | + + + | Marital Status | Never | + + + | Druze Affiliation | Unknown | + + + | Race | or | + + + | Ethnic Group | or | + + + Author + + + | Author | [place] | + + + | Organization | [place] | + + + | Address | [address] | | | [place] [address] | + + + | Phone | | + + + Care Team Providers + + + + | Care Stemmer Machine Name | Role | Phone | + [...] | (no date) | LACTOBACILLUS ACIDOPHILUS | [facility] | | | | [facility] | + + + + | (no date) | LACTOBACILLUS ACIDOPHILUS | [facility] | | | | [facility] | + + + + | (no date) | FERROUS SULFATE | [facility] | | | | [facility] | + + + + | (no date) | FERROUS SULFATE | [facility] | | | | [facility] | + + + + | (no date) | IBUPROFEN | [facility] | | | | [facility] | + + + + | (no date) | IBUPROFEN | [facility] | | | | [facility] | + + + + | (no date) | Cyanocobalamin (Vitamin | [facility] | | | B-12) | [facility] | + + + + | (no date) | Cyanocobalamin (Vitamin | [facility] | | | B-12) | [facility] | + + + + | (no date) | CHOLECALCIFEROL (VITAMIN | [facility] | | | D3) | [facility] | + + + + | (no date) | CHOLECALCIFEROL (VITAMIN | [facility] | | | D3) | [facility] | + + + + | (no date) | MAGNESIUM AMINO ACID | [facility] | | | CHELATE | [facility] | + + + + | (no date) | MAGNESIUM AMINO ACID | [facility] | | | CHELATE | [facility] | + + + + Problems + + + + | | description | facility | + + + + | 2025-11-16 00:00 | Hematochezia | [facility] | | | | [facility] | + + + + | 2025-11-16 00:00 | Syncope | [facility] | | | | [facility] | + + + + Procedures No [...] 4.0 | (missing) | (missing) | | [facility] | 08:45:08 | [facility] | | | [...] | | | 08:45:08 | [facility] | [id number] | | | | | | - [...] | | | 08:45:08 | [facility] | [id number] | | | | | | - [...]
[~2025-11-24 02:37] MED LIST changes: +ACETAMINOPHEN500 MG PO; +IBUPROFEN600 MG PO; -LACTATED RINGER'S 1,000 ML IV SCH; +MAGNESIUM100 MG PO; +OMEGA 3 1,0001 EACH PO; +OXYCODON-ACETA1 EAC2 PO; +VITAMIN B12500 MCG PO
--- OUTSIDE RECORDS SUMMARY | 2025-11-24 02:43 | XMS ---
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 - 2 Visits in 30 Days CARE PROVIDERS [facility] [place]: Multi-Specialty Current FAMILY PHONE: Unknown Junaid has no Care Guidelines for this patient. Titi VISIT COUNT (12 MO.) 2 [facility] TOTAL 2 NOTE: Visits indicate total known visits. ED/UCC VISIT TRACKING (12 MO.) 11/24/2025 02:37 YUNIOR Gregory [place] TYPE: Emergency COMPLAINT: - POST OP ISSUE 11/16/2025 08:34 YUNIOR Gregory [place] TYPE: Emergency COMPLAINT: - POST OP PROBLEM INPATIENT VISIT TRACKING (12 MO.) 11/16/2025 08:35 YUNIOR Gregory OR TYPE: Observation COMPLAINT: - HEMATOCHEZIA DIAGNOSES: - Acquired absence of other specified parts of digestive tract - Anemia, unspecified - Body mass index [BMI] 40.0-44.9, adult - Obesity, unspecified - Other surgical procedures as the cause of abnormal reaction of the patient, or of later complication, without mention of misadventure at the time of the procedure - Personal history of adenomatous and serrated colon polyps - Postprocedural hemorrhage of a digestive system organ or structure following a digestive system procedure - Syncope and collapse [email or web address]
[2025-11-24 03:18] LABS: BASOPHILS 0.4 % (0.1-1.2); EOSINOPHILS 1.5 % (0.7-5.8); LYMPHOCYTES 29.8 % (19.3-51.7); MCH 27.0 PG (25.6-32.2); MCHC 32.7 g/dL (32.2-35.5); MCV 82.7 fL (79.4-94.8); MONOCYTES 6.0 % (4.7-12.5); NEUTROPHILS 61.9 % (34.0-71.1); RBC 3.07 M/uL (3.93-5.22)
[2025-11-24 03:45] LABS: INR 1.02 (0.80-1.30); PROTIME 12.8 Sec (11.2-14.2)
[2025-11-24] MEDS ORDERED: LACTATED RINGER'S 1,000 ML IV ONE (03:45)
[2025-11-24 03:46] LABS: ALT (SGPT) 37.0 U/L (14-59); AST (SGOT) 17.0 U/L (15-37); GLOMERULAR FILTRATION RATE,EST 124.0 mL/min (>60); PROTEIN, TOTAL 6.4 g/dL (6.4-8.2); UREA NITROGEN 13.0 mg/dL (7-18)
[2025-11-24] MEDS ORDERED: TRANEXAMIC ACID IN NACL,ISO-OS 1,000 MG/100 ML PIGGYBACK IV ONE (04:15)
[2025-11-24] MEDS ORDERED: PANTOPRAZOLE SODIUM 40 MG/10 ML VIAL IV ONE (04:15)
[2025-11-24 05:06] LABS: ABO O; RH POSITIVE
[2025-11-24 05:07] LABS: ANTIBODY SCREEN NEGATIVE; IS CROSSMATCH COMPATIBLE
[2025-11-24] MEDS ORDERED: LACTATED RINGER'S 1,000 ML IV SCH ×2 (05:45→11:15)
--- NOTE | 2025-11-24 06:15 | NUR ---
PT ARRIVES TO FLOOR VIA STRETCHER. PT RESTING WITH EYES CLOSED. WAKES TO VOICE. PT ABLE TO SCOOT HERSELF OVER TO BED. ADMISSION PROCESS COMPLETE. PT REQUESTS TO USE THE BATHROOM. PT HAD LIQUID STOOL WITH LARGE AMOUNT OF ANURADHA RED BLOOD PRESENT. PT DENIES DIZZINESS OR LIGHTHEADEDNESS. DENIES FEELING SOB. PT ABLE TO AMBULATE BACK TO BED WITH SBA. TOLERATED WELL. VS RECHECKED, WNL. PRIMARY RN NOTIFIED. PT DENIES FURTHER NEEDS AT THIS TIME. CALL LIGHT IN REACH. PTS MOM PRESENT AT BEDSIDE.
--- NOTE | 2025-11-24 07:18 | NUR ---
RECIEVED REPORT FROM BRIGHT GAGE. PT IS SOUNDLY SLEEPING IN BED.HOB IS ELEVATED. MOTHER SLEEPING AT BEDSIDE. BLOOD INFUSING PER POLICY. CALL LIGHT AND PERSONAL BELONGINGS ARE WITHIN REACH.
--- NOTE | 2025-11-24 09:30 | NUR ---
HOURLY ROUNDING PATIENT RESTING WITH HER EYES CLOSED SLEEPING RYAN[INE POSITION. MOTHER IS AT BEDSIDE. BOARD HAS BEEN UPDATED AND CALL LIGHT HAS BEEN PLACED WITHIN REACH. NO REQUEST FROMTHE MOTHER OR PATIENT AT THIS TIME
--- NOTE | 2025-11-24 09:55 | NUR ---
In with pt for IV Pump alarming complete. Pt unit of blood is empty, blood still in tubing. Flush programmed at this time. Pt is resting with eyes closed, breathing is regular, even, and non-labored. Mother at bedside. Call light in reach.
--- NOTE | 2025-11-24 10:35 | NUR ---
In with pt for post blood administration vs. IVFlush complete. pt is currently finishing up on the toilet and had a bloody bm (200ml) and voided 300ml clear yellow urine. Pt states she feels fine, no dizziness, no sob, no itching, no other symptoms. Primary RN notified, Drs. Lares and Chela notified. Dr. Haines notified. Drs. Lares and Chela visualized the stool in the hat in the pt's bathroom themselves.
[2025-11-24] MEDS ORDERED: PANTOPRAZOLE SODIUM 40 MG/10 ML VIAL IV SCH (11:14)
[2025-11-24] MEDS ORDERED: ACETAMINOPHEN 325 MG TAB PO PRN (11:15)
--- NOTE | 2025-11-24 11:15 | NUR ---
PT SLEEPING SOUNDLY IN BED. MOTHER IS AT BEDSIDE. MOTHER DENIES ANY NEEDS OR CONCERNS AT THIS TIME. CALL LIGHT IS WITHIN REACH.
[2025-11-24 11:23] LABS: BASOPHILS 0.4 % (0.1-1.2); EOSINOPHILS 1.0 % (0.7-5.8); LYMPHOCYTES 21.9 % (19.3-51.7); MCH 27.3 PG (25.6-32.2); MCHC 32.5 g/dL (32.2-35.5); MCV 83.8 fL (79.4-94.8); MONOCYTES 4.5 % (4.7-12.5); NEUTROPHILS 71.9 % (34.0-71.1); RBC 3.52 M/uL (3.93-5.22)
[2025-11-24] MEDS ORDERED: PHARMACY RENAL DOSE ADJUSTMENT 1 DOSE MISC PO SCH (12:00)
--- NOTE | 2025-11-24 13:03 | NUR ---
Dr. Haines reviewed consent for surgery with pt. This RN confirmed pt has no questions and pt signed consent, this RN witnessed. Mother in room.
--- NOTE | 2025-11-24 13:18 | NUR ---
PT AWAKE, RESTING IN BED. RORY MONTEJO, CHARTING VS. MOTHER REMAINS AT BEDSIDE. LR WITH STRAUGHT TUBING AND EXTENSION SET PRIMED AND HUNG FOR DAY SURGERY.
--- NOTE | 2025-11-24 13:19 | NUR ---
HOURLY ROUNDING, PATIENT MENTIONED USING THE BATHROOM CHECKING PATIENT I'S AND O'S. NOTICE BLOOD INSTOOL NURSE NOTIFIED. NO BLOOD IN URINE. NEW PAD AND MESH UNDERWAER HAS BEEN GIVEN.NO REQUEST FROM PATIENT AT THIS TIME.URINE SAMPLE CUP HAS BEEN PLACED IN THE BATHROOM CALL LIGHT IS WITHIN REACH
[2025-11-24] MEDS ORDERED: DEXAMETHASONE SOD PHOS 4 MG/ML VIAL ONE (14:00)
[2025-11-24] MEDS ORDERED: LIDOCAINE HCL 2% 5 ML SDV ONE (14:00)
[2025-11-24] MEDS ORDERED: fentaNYL citrate 100 MCG/2 ML VIAL ONE (14:00)
[2025-11-24] MEDS ORDERED: MIDAZOLAM HCL 2 MG/2 ML VIAL ONE (14:00)
[2025-11-24] MEDS ORDERED: BUPIVACAINE 0.75% IN DEXTROSE 2 ML AMP ONE (14:00)
--- NOTE | 2025-11-24 14:01 | NUR ---
BRIGHT HINES FROM D/S HERE TO COLLECT PT FOR PROCEDURE. PT IN HOSPITAL GOWN. TELE REMOVED.
--- NOTE | 2025-11-24 14:03 | EKG ---
[facility] [address] [facility] [place], [place] [address] Signed Normal sinus rhythm Normal ECG No previous ECGs available Confirmed by Lai Gallo DO ([id number]) on 11/24/2025 2:02:51 PM Electronically Signed By: LAI GALLO DO 11/24/25 1403 PATIENT NAME: KERRI SWAN Electrocardiogram DATE OF : 01 PHYSICIAN: LAI GALLO DO REPORT #: [id number] REPORT IS CONFIDENTIAL AND NOT TO BE RELEASED WITHOUT AUTHORIZATION
--- NOTE | 2025-11-24 15:07 | NUR ---
PT REMAINS OFF FLOOR AT THIS TIME.
[2025-11-24] MEDS ORDERED: SUCCINYLCHOLINE IN 0.9% NACL 200 MG/10 ML SYRINGE ONE (15:22)
--- NOTE | 2025-11-24 15:31 | NUR ---
11/24/25 1531 Lucía Jansen 1523-PT ARRIVES TO PACU ON 3L VIA NC. PT IS DROWSY. RESPONDS TO VERBAL STIMULI. RESP EVEN AND UNLABORED. 1530-PT IS DROWSY. RESP EVEN AND UNLABORED. DENIES PAIN AND NAUSEA.
[2025-11-24] MEDS ORDERED: PSYLLIUM SEED 1 PKT PACKET PO SCH (15:45)
--- NOTE | 2025-11-24 15:53 | NUR ---
RECIEVED REPORT FROM DS RN, EVERETT. PT IS RESTING IN BED WITH HEAD ELEVATED. VS TAKEN AND DOCUMENTED IN CHART. MOTHER REMAINS AT BEDSIDE. PT IS EXPERIENCING NO PAIN AT THIS TIME. RN EVERETT REPORTED A SADDLE BLOCK WAS PLACED IN DS. CPOX CONNECTED AND SET AT BEDSIDE. PT ALERT AND ORIENTED TIMES FOUR. PT AND MOTHER WITH NO NEEDS AT THIS TIME. CALL LIGHT AND PERSONAL BELONGINGS ARE WITHIN REACH.
[2025-11-24 16:12] LABS: BASOPHILS 0.3 % (0.1-1.2); EOSINOPHILS 0.7 % (0.7-5.8); LYMPHOCYTES 15.7 % (19.3-51.7); MCH 27.6 PG (25.6-32.2); MCHC 33.0 g/dL (32.2-35.5); MCV 83.7 fL (79.4-94.8); MONOCYTES 2.7 % (4.7-12.5); NEUTROPHILS 79.8 % (34.0-71.1); RBC 3.26 M/uL (3.93-5.22)
--- NOTE | 2025-11-24 18:02 | NUR ---
HOURLY ROUNDING PATIENT LAYING IN BED, SBA ASSIST WHEN USIONG THE RESTROOM, NO REQUEST FROM PATIENT AT THIS TIME CALL LIGHT HAS BEENPLACED WITHIN REACH
[2025-11-24 18:09] LABS: BLOOD/HGB, URINE TRACE-I (Negative); KETONE, URINE NEGATIVE (Negative); LEUK ESTERASE, URINE NEGATIVE (negative); NITRITE, URINE NEGATIVE (negative)
[2025-11-24 18:14] LABS: BACTERIA, URINE 1+ /hpf (negative); CASTS, URINE NONE SEEN \\lpf; CRYSTALS, URINE NONE SEEN (0-1+); EPITHELIAL CELLS, URINE SQUAMOUS 1+ /lpf (0-1+); REFLEX CULTURE, URINE No (No)
--- NOTE | 2025-11-24 19:30 | NUR ---
RECIEVED REPORT FROM BRIGHT PITTMAN. PT LAYING IN BED SPEAKING WITH FRIEND AT BEDSIDE. NO PAIN/NAUSEA REPORTED AT THIS TIME, CALL LIGHT WITHIN REACH.
[2025-11-24] MEDS ORDERED: MELATONIN 3 MG TAB PO PRN (21:00)
--- NOTE | 2025-11-24 21:35 | NUR ---
PT LAYING IN BED, DROWSY, VS TAKEN, I&OS CHARTED. CPOX AT BEDSIDE, PT REPORTS NO PAIN OR NAUSEA AT THIS TIME. PT HAS AMBULATED A FEW TIMES TO BATHROOM SINCE START OF SHIFT WITH SBA LTM. NO BLEEDING. NEW BAG OF FLUIDS INFUSING AT THIS TIME, NO OTHER NEEDS AT THIS TIME, LIGHTS OFF, CALL LIGHT WITHIN REACH, ORDERED MED GIVEN.
--- NOTE | 2025-11-24 23:37 | NUR ---
PT UP TO BATHROOM WITH LTM, NO BLEEDING AT THIS TIME, BACK TO BED, CALL LIGHT WITHIN REACH, BED AT LOWEST POSITION.
[2025-11-25] VITALS (8 sets, daily range): BP systolic 109–128; BP diastolic 47–73
--- NOTE | 2025-11-25 01:04 | NUR ---
BOOKKEEPING MANAGER ASSISTED PT TO THE RESTROOM, SLIGHT BLOOD NOTED IN TOILET. PT REPORTS NO PAIN/LIGHTHEADNESS/NAUSEA. WILL CONTINUE TO MONITOR, NO OTHER NEEDS AT THIS TIME, CALL LIGHT WITHIN REACH, LIGHTS OFF.
--- NOTE | 2025-11-25 02:11 | NUR ---
VS TAKEN, PT ASSISTED TO THE BATHROOM WITH LTM/SBA, NO BLLEDING AT THIS TIME. PT BACK TO BED, PT REPORTS SLIGHT PAIN 2/10 IN RECTUM, PRN PAIN MED GIVEN. NO OTHER NEEDS AT THIS TIME, CALL LIGHT WITHIN REACH, BED AT LOWEST POSITION.
--- NOTE | 2025-11-25 03:49 | NUR ---
PT DESATS TO 82% WHEN ASLEEP AND SNORING, PT AGREES TO 1L NC WHEN SLEEPING, CHARGE AWARE AND AGREES AT THIS TIME. NO OTHER NEEDS, CALL LIGHT WITHIN REACH, BED AT LOWEST POSITION.
--- NOTE | 2025-11-25 05:00 | NUR ---
PT ASSISTED TO BATHROOM WITH LTM, NO BLEEDING AT THIS TIME. I&OS CHARTED, VS TAKEN, PT BACK TO BED ON 1LNC D/T DESATS WHEN SLEEPING. NO OTHER NEEDS AT THIS TIME, PT REPORTS NO PAIN AFTER TYLENOL. CALL LIGHT WITHIN REACH, MOM AT BEDSIDE, BED AT LOWEST POSITION.
[2025-11-25 05:50] LABS: BASOPHILS 0.2 % (0.1-1.2); EOSINOPHILS 0 % (0.7-5.8); LYMPHOCYTES 13.6 % (19.3-51.7); MCH 27.2 PG (25.6-32.2); MCHC 33.2 g/dL (32.2-35.5); MCV 82.0 fL (79.4-94.8); MONOCYTES 4.2 % (4.7-12.5); NEUTROPHILS 81.0 % (34.0-71.1); RBC 3.38 M/uL (3.93-5.22)
[2025-11-25 06:25] LABS: ALT (SGPT) 55.0 U/L (14-59); AST (SGOT) 38.0 U/L (15-37); GLOMERULAR FILTRATION RATE,EST 128.0 mL/min (>60); PROTEIN, TOTAL 6.3 g/dL (6.4-8.2); UREA NITROGEN 6.0 mg/dL (7-18)
--- NOTE | 2025-11-25 07:30 | NUR ---
REPORT RECEIVED FROM PROJECT DEVELOPMENT ENGINEER RN. PT RESTING IN BED, EYES CLOSED. NO DISTRESS NOTED. PT MOM AT BEDSIDE. NO NEEDS AT THIS TIME
--- NOTE | 2025-11-25 09:00 | NUR ---
PT RESTING IN BED, READING BOOK. DENIES NAUSEA OR PAIN AT THIS TIME. REPORTS SHE HAS BEEN PASSING GAS WNL, NO NEW BLEEDING. PT REPORTS NOT SEEING PACKING FALL OUT JUST YET. UPDATED ON POC FOR TODAY. NO OTHER NEEDS
--- NOTE | 2025-11-25 09:43 | NUR ---
INTO SEE PATIENT. PERSONAL HEALTH INFORMATION REVIEWED. PAT[place] LIV[place] [address] NO DIFFCULTY DOING THEM. NO DME. DRIVES. FAMILY THAT [place]. DENIES ANY DIFFCULTY PAYING ULITIES OR OBTAINING FOOD. PATIENT MOTHER WILL PICK HER UP WHEN MEDICALLY CLEARED FOR D/C. NO FUTHER CM NEEDS AT THIS TIME.
--- NOTE | 2025-11-25 10:00 | NUR ---
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 PT ABLE TO PASS GAS, UNABLE TO HAVE BM AT THIS TIME. PT AMBULATED VIA SBA BACK TO CHAIR, WATCHING TV. UPDATED ON PLAN OF CARE, DENIES FURTHER NEEDS. CALL LIGHT IN REACH
--- NOTE | 2025-11-25 11:36 | NUR ---
PATIENT IS SITTING IN CHAIR. PATIENT LINEN WAS CHANGED. PATIENT DECLINED TO SHOWER WILL CALL IF SHE WANTS TO TAKE ONE. PATIENTS CALL LIGHT IS WITHIN REACH AND NO FURTHER NEEDS AT THIS TIME.
[2025-11-25] MEDS ORDERED: METAMUCIL PACK3.4 GM PO (11:50)
--- NOTE | 2025-11-25 12:35 | NUR ---
PT AMBULATED TO BATHROOM, SBA. PT ABLE TO HAVE BOWEL MOVEMENT, REPORTS SOME CRAMPING BUT OTHERWISE DOING WELL. PT NOW BACK IN BED. WATER REFRESHED. DENIES FURTHER NEEDS, SISTER AT BEDSIDE
[2025-11-25] MEDS ORDERED: PANTOPRAZOLE SODIUM 40 MG TABEC PO SCH (21:00)
--- NOTE | 2025-11-25 21:45 | OR ---
[facility] [address], [place] [address] Signed DATE OF OPERATION: 11/24/2025 SURGEON: Дмитрий Roberson MD PREOPERATIVE DIAGNOSES: 1. Recurrent hematochezia. 2. Morbid obesity. 3. History of polypectomy, low anal rectal area, on November 15, 2025 (tubular adenomas). 4. 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 POSTOPERATIVE DIAGNOSES: 1. Recurrent hematochezia. 2. Morbid obesity. 3. History of polypectomy, low anal rectal area, on November 15, 2025 (tubular adenomas). 4. 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 5. Conversion of assisted mask ventilation to general endotracheal anesthetic (at conclusion of procedure). PROCEDURE: 1. Exam under anesthesia. 2. Excision of bleeding hemorrhoidal tissue, posterior aspect. 3. Over-sewing and cautery hemostasis of para hemorrhoidal friable tissue. 4. Cautery and security of bleeding anal papilla. 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 INDICATION: This is a 25-year-old morbidly obese woman, underwent colonoscopy by ca on November 15, 2025. This was actually a flexible sigmoidoscopy as the patient has had total proctocolectomy with ileoanal pull-through and J-pouch. She was found on previous evaluation to have retained rectal mucosa, which was not much, but did have adenomatous polyps. On the recent colonoscopy on 11/15/2025, she had two adenomas and another hyperplastic polyp. The adenomas were excised with hot snare polypectomy technique. Within 48 hours of her procedure, she had significant hematochezia, indeed requiring transfusion as she did have a vagal episode associated with this. She was evaluated and admitted by in my absence and found on anoscopy to have no ongoing Electronically Signed By: ДМИТРИЙ ROBERSON MD 11/25/25 2145 PATIENT NAME: KERRI SWAN OPERATIVE REPORT DATE OF : 01 REPORT #: [id number] PHYSICIAN: ДМИТРИЙ ROBERSON MD PCP: ANA CRISTINA STARK MD REPORT IS CONFIDENTIAL AND NOT TO BE RELEASED WITHOUT AUTHORIZATION [facility] [address], [place] [address] Signed bleeding in the areas of previous polypectomy. She was discharged home within 48 hours. She began having hematochezia again earlier today, presented to the emergency room, was evaluated by Dr. Richter and admitted by Dr. Lares with the finding of a hemoglobin of 8.3 with a baseline of around 13. She was given 2 units of blood transfusion. She has had no profound hematochezia since that time, but given this recurrent bleeding, I have recommended exam under anesthesia, security of any bleeding area, and with normal examination upper endoscopy on the possibility of upper gastrointestinal source of bleeding, particularly given her prior resection of colon and fast transit from proximal to distal gut. The patient and her mother agree with my recommendation. She understands the risk of bleeding, infection, failure to find the bleeding source, and other unforeseen complications. FINDINGS: The bleeding was not profound, but it was persistent and located in the posterior aspect of the area. It appeared to be hemorrhoidal in nature, though admittedly she should have little such tissue left generally speaking; she did have enough rectal mucosa left to develop adenomatous polyps and therefore possibly of hemorrhoidal development is not excluded. She also had some oozing of an inflamed anal papilla. Control of bleeding included essentially a hemorrhoidectomy that under showing of the base of the redundant mucosa with bleeding as well as over-sewing of an area of bleeding adjacent to it. It did not appear to be a bleeding eschar from polypectomy or anything of that sort. The anal papilla that was bleeding was secured with cautery without problem. Of special note, essentially at conclusion of the procedure, at time of presenting anal packing, she had difficulty ventilating despite the usual airway management, required emergency placement to supine position and the intubation with control of airway. This was successful and she had no known complications from it and was able to be extubated at conclusion of the procedure without problem. PROCEDURE IN DETAIL: The patient was brought to the operating room after undergoing a spinal anesthetic. She was placed in the prone chandler-knife position and buttocks taped apart and the perianal area prepared with a Betadine-based solution. Intravenous sedation was induced as well as well as manual airway management. Examination of the anorectum showed no external source of bleeding. Digital examination showed reasonable sphincter tone considering her J-pouch anatomy. Mucoid stool was suctioned free. Gentle examination showed some oozing of blood from an anal papilla anteriorly. There was no sign of a clot or ongoing significant bleeding at this point. An anal retractor was placed and examination undertaken allowing for suctioning of more stool. The posterior aspect was an area definitely of persistent oozing of bright blood. It was not associated with an eschar polypectomy site so far as could be told. Indeed, it appeared much like a Electronically Signed By: ДМИТРИЙ ROBERSON MD 11/25/25 5404 PATIENT NAME: KERRI SWAN OPERATIVE REPORT DATE OF : 01 REPORT #: [id number] PHYSICIAN: ДМИТРИЙ ROBERSON MD PCP: ANA CRISTINA STARK MD REPORT IS CONFIDENTIAL AND NOT TO BE RELEASED WITHOUT AUTHORIZATION [facility] [address], [place] [address] Signed hemorrhoid. The area was grasped with a White clamp and subsequently a tonsil clamp, which secured the bleeding. A 2-0 chromic suture with a UR needle was used to undermine the clamp completely and redundant hemorrhoid like tissue was excised and passed for pathology. The clamp was released showing good hemostasis. An area adjacent to this most likely simple disruption in the mucosal layer did have some persistent oozing and that was secured with a small amount of cautery as well as a 2-0 chromic suture. The anterior bleeding papilla was secured with electrocautery. Irrigation was undertaken and hemostasis appeared quite complete. A Gelfoam was rolled and anticipated to be placed when at that point she had decreased O2 saturations and despite elaborate manipulation of her airway in the prone position quite clearly she needed a more definitive airway. The anal pack was placed and the patient was promptly rolled to a supine position onto the stretcher. An emergency intubation undertaken by the remedial project manager with a single pass. Full intubation of the trachea was accomplished and good ventilations and oxygenation was maintained. In due course, she was able to be extubated. She was taken to recovery room in good condition having suffered no other complication. Дмитрий Roberson MD JM/MODL /[id number] cc: DO Ana Cristina MIRZA MD Copies: ~ Electronically Signed By: ДМИТРИЙ ROBERSON MD 11/25/25 2145 PATIENT NAME: KERRI SWAN OPERATIVE REPORT DATE OF : 01 REPORT #: [id number] PHYSICIAN: ДМИТРИЙ ROBERSON MD PCP: ANA CRISTINA STARK MD REPORT IS CONFIDENTIAL AND NOT TO BE RELEASED WITHOUT AUTHORIZATION
--- NOTE | 2025-11-25 21:45 | CONS ---
[facility] [address] [place], [place] [address] Signed DATE OF CONSULTATION: 11/24/2025 REQUESTING PHYSICIAN: Dr. Lares. PROBLEM: Recurrent hematochezia. HISTORY OF PRESENT ILLNESS: This 25-year-old woman is well known to me from the past. On November 15, 2025, she underwent a flexible sigmoidoscopy with snare polypectomy x2 of low jejunal anastomotic adenomatous polyps. Of note, she underwent total proctocolectomy with ileoanal pull-through in J-pouch a number of years ago related to underlying familial polyposis. She was identified as having polyps in what appeared to be retained rectal mucosa several months ago and a surveillance colonoscopy was performed on November 15 affirming findings of adenomatous polyps for which excision was accomplished. Pathology report confirmed them to be adenomatous, but without sign of malignancy. She returned to the hospital shortly thereafter on November 16, having had vagal symptoms related to hematochezia. She was hospitalized by and had undergone transfusion of 2 units of blood in the field with hemoglobin on admission of 10.6. She was observed after anoscopy by showed no sign of ongoing bleeding. She was discharged home the following day, doing well. She presented to the emergency room today at approximately 3:00 a.m. and evaluated by Dr. Richter with recurrent bright red rectal bleeding. She again had a fair amount of blood per rectum and her lab studies showed a hematocrit of 25.4 with a white count of 7.31, and platelets of 276,000. She is not known to have underlying coagulopathy in any way. She was admitted by Dr. Lares, hospitalist, and I was consulted for further consideration and management. Since hospitalization, she has had some additional bleeding, but no hemodynamic instability. She is on the regular nursing floor at this time. Current vital signs show a temperature of 97.8, a pulse of 74, blood pressure 129/64. She is accompanied by her mother. REVIEW OF SYSTEMS: She denies any anorectal pain. She has had no hematemesis or epigastric pain. PHYSICAL EXAMINATION: GENERAL: Pleasant, dark-skinned woman who does not look to be in severe distress. She is clutching her stuffed penguin (Ambrosio) whom she carries with her and has since early days of surgical intervention for underlying FAP. Electronically Signed By: ДМИТРИЙ ROBERSON MD 11/25/25 2142 PATIENT NAME: KERRI SWAN CONSULTATION DATE OF : 01 REPORT #: [id number] PHYSICIAN: ДМИТРИЙ ROBERSON MD PCP: SHARYN STARK MD REPORT IS CONFIDENTIAL AND NOT TO BE RELEASED WITHOUT AUTHORIZATION [facility] [address] [place] [id number] Signed NECK: Trachea is midline. She has no dyspnea. ABDOMEN: Obese, but soft. Anorectal exam was deferred at this time. EXTREMITIES: Show no clubbing, cyanosis, or edema. LABORATORY STUDIES: Most recently show hematocrit 29.5, previously 25.4, having undergone 2 units of blood transfusion. Coag studies show a normal INR of 1.02. Chemistry is normal. Creatinine is 0.70. Liver enzymes normal. Albumin 3.2. Urinalysis not received. ASSESSMENT: It is quite unusual for her to have persistent bleeding from polypectomy this far out. The possibility of bleeding at this site must be acknowledged, however, and I would recommend exam under anesthesia and control of any bleeding or recently bleeding areas either with over-sew or other means. I do not believe an endoscopic approach would be appropriate. More appropriate would be exam under anesthesia with anoscopy or anal retractors and close inspection of the mucosa. Additionally, an upper endoscopy may be advisable. If she does have an upper gastrointestinal source of her bleeding, rapid transit through the small bowel would be a norm rather than exception as she has no colon to "put the brakes on" passage of upper gastrointestinal bleeding source. The risk of bleeding, infection, perforation, and so forth of both procedures was reviewed with the patient and her mother who attends to her. They agree and we will plan to do this today. MD WILL Etienne/CHRISL /[id number] cc: MD Dr. Neelam Lubin Electronically Signed By: ДМИТРИЙ ROBERSON MD 11/25/25 2145 PATIENT NAME: KERRI SWAN CONSULTATION DATE OF : 01 REPORT #: [id number] PHYSICIAN: ДМИТРИЙ ROBERSON MD PCP: SHARYN STARK MD REPORT IS CONFIDENTIAL AND NOT TO BE RELEASED WITHOUT AUTHORIZATION [address] [address] Signed Copies: ~ Electronically Signed By: ДМИТРИЙ ROBERSON MD 11/25/25 2145 PATIENT NAME: KERRI SWAN CONSULTATION DATE OF : 01 REPORT #: [id number] PHYSICIAN: ДМИТРИЙ ROBERSON MD PCP: SHARYN STARK MD REPORT IS CONFIDENTIAL AND NOT TO BE RELEASED WITHOUT AUTHORIZATION
== END 2025-11-25 12:55 | disposition home or self-care (01) ==
LOC: ED 02:37 → MS 02:38
PROVIDERS: Internal Medicine; Surgery; ADMIT Student in an Organized Health Care Education/Training Program; ATTEND Student in an Organized Health Care Education/Training Program
PROC: 06BY0ZC Excision of Hemorrhoidal Plexus, Open Approach (ICD-10-PCS; principal; 2025-11-24 13:14)
DX: K64.8 Other hemorrhoids (principal); D12.9 Benign neoplasm of anus and anal canal; D64.9 Anemia, unspecified; E66.01 Morbid (severe) obesity due to excess calories; Z86.0101 Personal history of adenomatous and serrated colon polyps; Z98.0 Intestinal bypass and anastomosis status; Z90.49 Acquired absence of other specified parts of digestive tract
CPT/HCPCS: 00902; 36415; 36430; 80053; 81001; 84484; 84703; 85025; 85610; 85730; 86850; 86900; 86901; 86922; 88305; 93005; 93010; 94762; 96361; 96374; 96375; 96376; 99284-25; A9270; G0378; J0330; J1100; J2003; J2250; J2405; J2470; J2704; J3010; J7121; P9016